=== PATIENT | female | born 1990 | race Hispanic/Latino ===

== ENCOUNTER 2023-12-23 11:25 | Emergency (ER) | payer SELFPAY ==
[~2023-12-23] VITALS: Ht 154.9 cm; Wt 61.0 kg
[2023-12-23 11:41] VITALS: BP 141/84
[2023-12-23 12:00] VITALS: BP 117/81
[2023-12-23 12:30] VITALS: BP 113/76
[2023-12-23] MEDS ORDERED: LIDOcaine HCl 1% (Local Anesth.) 20 ML VIAL IM STA (12:50)
[2023-12-23] MEDS ORDERED: AZITHROMYCIN 250 MG/TAB PO ONE (12:50)
[2023-12-23] MEDS ORDERED: cefTRIAXone SODIUM 1 GM/VIAL SDV IM ONE (12:50)
[2023-12-23 13:44] LABS: URINE BILIRUBIN - DIPSTICK Negative (NEGATIVE); URINE BLOOD DIPSTICK Negative (NEGATIVE); URINE GLUCOSE - DIPSTICK Negative (NEGATIVE); URINE KETONE Negative (NEGATIVE); URINE LEUK ESTERASE Negative (NEGATIVE); URINE NITRITE - DIPSTICK Negative (Negative); URINE PROTEIN - DIPSTICK Negative (NEG-TRACE); URINE UROBILINOGEN - DIPSTICK 0.2 E.U./dL (0.2)
[2023-12-23 13:47] LABS: URINE COLOR Yellow
[2023-12-23 14:41] VITALS: BP 113/76
== END 2023-12-23 14:45 | disposition home or self-care (01) | DRG 761 ==
LOC: ED 11:25
PROVIDERS: Nurse Practitioner
DX: N89.8 Other specified noninflammatory disorders of vagina (principal); R75 Inconclusive laboratory evidence of human immunodeficiency virus [HIV]

== ENCOUNTER 2024-03-02 09:55 | Emergency (ER) | payer OTHER ==
[2024-03-02] VITALS (10 sets, daily range): BP systolic 91–127; BP diastolic 55–92
[~2024-03-02] VITALS: Ht 154.9 cm; Wt 60.7 kg
[2024-03-02] MEDS ORDERED: DEBROX6.5 % AS (12:36)
== END 2024-03-02 13:01 | disposition home or self-care (01) ==
LOC: ED 09:55
DX: H61.22 Impacted cerumen, left ear (principal)